=== PATIENT | female | born 1950 | race Caucasian/White ===

== ENCOUNTER → 2017-04-26 | Outpatient (CLI) | payer MEDICARE ==
--- NOTE | 2017-04-26 12:24 | Diagnostic Imaging Report ---
PROCEDURE:CHEST 2 VIEWS TECHNIQUE:PA and lateral chest INDICATION:Followup irregular chest x-ray. COMPARISON:None. FINDINGS: Lungs are clear and symmetrically inflated. No pleural effusions. Normal heart size, mediastinal contour and pulmonary vasculature. Intact skeleton. Small bone island at the posterior aspect of the right fifth rib. CONCLUSION: 1. No acute abnormality. 2. Comparison radiograph demonstrating the reported irregularity is not available for comparison. If possible, acquisition and comparison of this radiograph would be beneficial given the clinical history. An addendum can be generated if that x-ray becomes available in this PACS. Dictated by: Fadi Ridley M.D. on 04/26/2017 at 12:32 Electronically approved by: Fadi Ridley M.D. on 04/26/2017 at 12:32
== END ==
LOC: RAD 11:42
PROVIDERS: ATTEND Internal Medicine
DX: R91.1 Solitary pulmonary nodule (principal)
CPT/HCPCS: 71020

== ENCOUNTER → 2017-11-04 | Outpatient (CLI) | payer MEDICARE ==
--- NOTE | 2017-11-04 17:03 | Diagnostic Imaging Report ---
PROCEDURE:HIP RIGHT 2-3 VW (+/- PELVIS) COMPARISON:None. INDICATIONS:UNSOECIFIED OSTEOARHTRITIS OF RIGHT HIP FINDINGS: No acute fracture or dislocation of the right hip. Mild superior joint space narrowing. 2.9 cm right iliac sclerotic lesion is probably a bone island. CONCLUSION: No acute fracture or dislocation of the right hip. Mild degenerative changes. Dictated by: Miki Thurman M.D. on 11/04/2017 at 17:07 Electronically approved by: Miki Thurman M.D. on 11/04/2017 at 17:07
--- NOTE | 2017-11-04 17:06 | Diagnostic Imaging Report ---
PROCEDURE:SACRUM X-RAY INDICATION:SPRAIN OF LUMBAR LIGAMENTS, SCIATIC NERVE COMPARISON:None. FINDINGS: See conclusion. CONCLUSION: No definite evidence of acute displaced fracture or dislocation of the sacrum. Dictated by: Miki Thurman M.D. on 11/04/2017 at 17:09 Electronically approved by: Miki Thurman M.D. on 11/04/2017 at 17:09
--- NOTE | 2017-11-04 17:15 | Diagnostic Imaging Report ---
PROCEDURE:THORACIC SPINE 2VW COMPARISON:None. INDICATIONS:THORACIC LIGAMENT SPRAIN FINDINGS: There are multilevel degenerative changes of the thoracic spine, marked by disc space narrowing and osteophytosis. There is normal alignment of the thoracic spine vertebral bodies. Vertebral body heights are maintained. CONCLUSION: No acute abnormality. Degenerative changes of the thoracic spine. Dictated by: Miki Thurman M.D. on 11/04/2017 at 17:19 Electronically approved by: Miki Thurman M.D. on 11/04/2017 at 17:19
== END ==
LOC: RAD 15:30
PROVIDERS: ATTEND Internal Medicine
DX: M54.6 Pain in thoracic spine (principal); S33.5XXA Sprain of ligaments of lumbar spine, initial encounter; M54.31 Sciatica, right side; M16.11 Unilateral primary osteoarthritis, right hip
CPT/HCPCS: 72070; 72220

== ENCOUNTER → 2017-11-21 | Outpatient (CLI) | payer MEDICARE | LOC: MAMMO 08:24 | PROVIDERS: ATTEND Internal Medicine | DX: Z12.31 Encounter for screening mammogram for malignant neoplasm of breast (principal) | CPT/HCPCS: 77067 ==

== ENCOUNTER → 2017-11-29 | Outpatient (CLI) | payer MEDICARE ==
--- NOTE | 2017-11-29 15:12 | Diagnostic Imaging Report ---
PROCEDURE:PELVIC ULTRASOUND COMPARISON:None. INDICATIONS:UNSPECIFIED OVARIAN CYSTS TECHNIQUE: Grayscale transverse and sagittal transabdominal images were obtained of the pelvis. 67 year old A0 MC2 EC0. Post-menopausal FINDINGS: UTERUS: Normal orientation. Size measures 8.8 x 3.2 x 5.2 cm, normal in size. No masses. ENDOMETRIUM: 0.8 cm in thickness, within normal limits in the absence of post-menopausal bleeding. Homogeneous without focal thickening. RIGHT OVARY: 3.2 x 2.1 x 1.7 cm. No masses or cysts. LEFT OVARY: 2.1 x 1.4 x 2.4 cm. No masses or cysts. There is no free fluid within the pelvis. No adnexal masses. CONCLUSION: Normal transabdominal pelvic ultrasound. Dictated by: Rhys Montero M.D. on 11/29/2017 at 15:16 Electronically approved by: Rhys Montero M.D. on 11/29/2017 at 15:16
== END ==
LOC: US 13:48
PROVIDERS: ATTEND Internal Medicine
DX: M47.816 Spondylosis without myelopathy or radiculopathy, lumbar region (principal); M48.04 Spinal stenosis, thoracic region; N83.209 Unspecified ovarian cyst, unspecified side
CPT/HCPCS: 76856

== ENCOUNTER → 2018-06-25 | Outpatient (CLI) | payer MEDICARE ==
--- NOTE | 2018-06-25 10:53 | Diagnostic Imaging Report ---
EXAMINATION: CHEST 2 VIEWS INDICATION: Solitary pulmonary nodule. COMPARISON: None FINDINGS: TUBES and LINES: None. LUNGS: Nodular opacity measuring 2.9 cm projects over the left upper lung. No evidence of pulmonary edema or pneumonia. PLEURA: No pleural effusion or pneumothorax. HEART AND MEDIASTINUM: The cardiomediastinal silhouette is unremarkable. BONES AND SOFT TISSUES: No acute osseous lesion. Soft tissues are unremarkable. UPPER ABDOMEN: No free air under the diaphragm. IMPRESSION: Nodular opacity in the left upper lung measuring 2.9 cm. Comparison with prior studies if available is recommended and chest CT is suggested for further evaluation. Signed by: Dr. Omkar Alfaro MD on 06/25/2018 10:50 AM
== END ==
LOC: RAD 08:59
PROVIDERS: ATTEND Internal Medicine
DX: R91.1 Solitary pulmonary nodule (principal)
CPT/HCPCS: 71046

== ENCOUNTER → 2018-07-18 | Outpatient (CLI) | payer MEDICARE ==
--- NOTE | 2018-07-18 17:29 | Diagnostic Imaging Report ---
ADDENDUM #1 RADIATION DOSE: Total DLP: 227.84 mGy*cm Estimated effective dose: (DLP x 0.014 x size factor) mSv CTDIvol has been reviewed. It is below the limits set by the Radiation Protocol Committee (RPC). Dose modulation, iterative reconstruction, and/or weight based adjustment of the mA/kV was utilized to reduce the radiation dose to as low as reasonably achievable. Signed by: Dr. Sohan Chavez M.D. on 07/18/2018 6:04 PM ORIGINAL REPORT EXAM: CT Chest WITHOUT contrast 07/18/2018 5:00 PM INDICATION: Solitary pulmonary nodule. Hypertension. Thyroid problems. COMPARISON: Chest radiograph 06/25/2018 TECHNIQUE: Chest was scanned utilizing a multidetector helical scanner from the lung apex through the level of the adrenal glands without administration of IV contrast. Absence of intravenous contrast decreases sensitivity for detection of lymphadenopathy and vascular pathology. Coronal and sagittal reformations were obtained. Routine protocol was performed. IV CONTRAST: None RADIATION DOSE: Total DLP: 227.84 mGy*cm Estimated effective dose: (DLP x 0.014 x size factor) mSv COMPLICATIONS: None FINDINGS: LINES/ TUBES: None. LUNGS AND AIRWAYS: Nonspecific 4 mm nodule along the lateral left pleural surface best seen on series 3 image 54. Minimal scarring/atelectasis in the lungs. Airways are normal. PLEURA: The pleural spaces are clear. HEART AND MEDIASTINUM: The thyroid gland is normal. No mediastinal, hilar or axillary lymphadenopathy. The heart is normal in size.. There is no pericardial effusion. UPPER ABDOMEN: Limited non-contrast views of the upper abdomen show no abnormality within the visualized liver, spleen, pancreas, or kidneys. The adrenal glands are normal. BONES: The visualized bony thorax is within normal limits. SOFT TISSUES: Unremarkable. IMPRESSION: Nonspecific 4 mm nodule along the lateral left pleural surface Signed by: Dr. Sohan Chavez M.D. on 07/18/2018 5:26 PM
== END ==
LOC: CT 16:37
PROVIDERS: ATTEND Internal Medicine
DX: R91.1 Solitary pulmonary nodule (principal)
CPT/HCPCS: 71250

== ENCOUNTER → 2021-08-21 | Outpatient (CLI) | payer MEDICARE | LOC: MAMMO 13:56 | PROVIDERS: ATTEND Internal Medicine | DX: Z12.31 Encounter for screening mammogram for malignant neoplasm of breast (principal) | CPT/HCPCS: 77067 ==